=== PATIENT | male | born 1980 | race African-American/Black ===

== ENCOUNTER 2020-01-26 19:27 | Emergency (ER) | payer OTHER ==
[~2020-01-26] VITALS: Ht 182.9 cm; Wt 90.7 kg
[2020-01-26 19:28] VITALS: BP 145/98
[2020-01-26] MEDS ORDERED: Ketorolac 30mg Inj IM ONE (19:45)
[2020-01-26] MEDS ORDERED: Acetaminophen 500mg (ES) tab ORAL ONE (19:45)
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
--- NOTE | 2020-01-26 20:27 | Diagnostic Imaging Report ---
EXAM: XR Left Tibia and Fibula, 2 Views CLINICAL HISTORY: PAIN TECHNIQUE: Frontal and lateral views of the left tibia and fibula. COMPARISON: No relevant prior studies available. FINDINGS: Bones/joints: Unremarkable. No acute fracture. No dislocation. Soft tissues: Unremarkable. No radiopaque foreign body. IMPRESSION: No acute osseous abnormality.
--- NOTE | 2020-01-26 20:28 | Diagnostic Imaging Report ---
EXAM: XR Left Knee, 3 Views CLINICAL HISTORY: PAIN TECHNIQUE: Three views of the left knee. COMPARISON: No relevant prior studies available. FINDINGS: Bones/joints: Unremarkable. No acute fracture. No dislocation. Soft tissues: Unremarkable. IMPRESSION: No acute osseous abnormality.
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
[2020-01-26] MEDS ORDERED: TYLENOL EXTRA500 MG ORAL (20:34)
--- NOTE | 2020-01-26 20:38 | Diagnostic Imaging Report ---
EXAM: XR Left Femur, 2 Views CLINICAL HISTORY: PAIN TECHNIQUE: Frontal and lateral views of the left femur. COMPARISON: No relevant prior studies available. FINDINGS: Bones/joints: Unremarkable. No acute fracture. No dislocation. Soft tissues: Unremarkable. IMPRESSION: No acute osseous abnormality.
[2020-01-26 20:39] VITALS: BP 135/76
== END 2020-01-26 20:39 | disposition home or self-care (01) ==
LOC: EDBD 19:27 → EMR 20:30
DX: S80.812A Abrasion, left lower leg, initial encounter (principal); M79.642 Pain in left hand; V03.90XA Pedestrian on foot injured in collision with car, pick-up truck or van, unspecified whether traffic or nontraffic accident, initial encounter; Y93.01 Activity, walking, marching and hiking; Y92.411 Interstate highway as the place of occurrence of the external cause
CPT/HCPCS: 73130; 73552; 73560; 73590; 96372; Z7502; 99284